=== PATIENT | male | born 1950 | race Caucasian/White ===

== ENCOUNTER 2017-01-03 12:00 | Inpatient (IN) | payer BC ==
[2016-12-29 13:28] LABS: HEMATOCRIT 49.2 % (40.0-51.0); HEMOGLOBIN 17.6 g/dL (13.6-17.8)
[2016-12-29 13:40] LABS: BUN (BLOOD UREA NITROGEN) 28 MG/DL (6-23); CALCIUM, SERUM 9.9 MG/DL (8.5-10.4); CHLORIDE, SERUM 101 MMOL/L (96-112); CO2 (CARBON DIOXIDE) 33 MMOL/L (24-34); CREATININE 1.51 MG/DL (0.70-1.30); GFR AFRICAN AMERICAN 56 ML/MIN (>=60); GFR NON AFRICAN AMERICAN 48 ML/MIN (>=60); GLUCOSE, SERUM 90 MG/DL (60-99); POTASSIUM, SERUM 4.8 MMOL/L (3.5-5.3); SODIUM, SERUM 137 MMOL/L (135-148)
--- NOTE | ~2017-01-03 | OP ---
Record Of Operation [facility] [address] [place]. [address] NAME: CHAMP FINK : 54 STATUS : ADM IN PAT#: [id number] AGE: 66 ADM/REG DATE : 01/03/17 MR#: [id number] REPORT SERV DATE: 01/04/17 DICTATED BY: MANJIT KELLY DATE: 01/04/17 REPORT STATUS : Draft TRANSCRIBED BY: MODL DATE: 01/04/17 DATE OF PROCEDURE: 01/03/2017 PREOPERATIVE DIAGNOSES: 1. Grade 3 spondylolisthesis, severe bilateral foraminal stenosis, L4-5. 2. Segmental kyphosis at L4-5. 3. Herniated nucleus pulposus far-lateral zone, right L5-S1. POSTOPERATIVE DIAGNOSIS: 1. Grade 3 spondylolisthesis, severe bilateral foraminal stenosis, L4-5. 2. Segmental kyphosis at L4-5. 3. Herniated nucleus pulposus far-lateral zone, right L5-S1. PROCEDURE: 1. Microscopic and navigation assisted surgery. 2. Left and right L4-5 hemilaminectomy, foraminotomy, and facetectomy. 3. Three-column pedicle osteotomy, L5. 4. Interbody cage insertion, posterolateral interbody fusion, L4-5. 5. Posterior percutaneous Voyager instrumentation at L4-5. 6. Left L5-S1 microdiskectomy far-lateral zone. NURSE PRACTITIONER: Steven Smith. ANESTHESIA: General. ESTIMATED BLOOD LOSS: 200 mL INDICATION FOR SURGERY: Indication for surgery and risks were explained. They are listed in last office note as well as the history and physical. See that for detail. DESCRIPTION OF PROCEDURE: Antibiotic prophylaxis was given. Neurophysiology monitoring were leads inserted. The patient was brought to the operative suite. General anesthetic including endotracheal intubation was administered. Palacios catheter was placed with sterile technique. The patient placed prone on a Leonel spine frame. Bony prominences were carefully padded. Thoracolumbar spine scrubbed with Hibiclens solution. DuraPrep was painted. Sterile drapes were applied. Please note that preoperatively I had reviewed the MRI again. By far his worse pathology is obviously at L4-5, but he did have MRI evidence of disk herniation on the left at L5-S1 in the far-lateral zone causing rather marked L5 nerve impingement. He did have L5 complaint and he did have more left leg than right leg pain. For this reason, I felt that I should also address this disk herniation. Also because of the complexity of surgery and the need to identify the correct level of surgery intraoperatively, as well as the desire to carry out the safest and most precise dissection, I felt that intraoperative navigation was mandatory. Record Of Operation [facility] [address] [facility] [place] [address] NAME: CHAMP FINK : 54 STATUS : ADM IN PAT#: [id number] AGE: 66 ADM/REG DATE : 01/03/17 MR#: [id number] REPORT SERV DATE: 01/04/17 DICTATED BY: MANJIT KELLY DATE: 01/04/17 REPORT STATUS : Draft TRANSCRIBED BY: JOSEFINA DATE: 01/04/17 A small stab wound was carried out over the right posterior superior iliac spine. A percutaneous pin with navigational frame attached was inserted into the PSIS. Intraoperative CT scan with O-arm obtained, CT information used to register the navigational system. With navigational assistance, I identified L4-5 and L5-S1. Initially, I identified the L5- S1 level. Just lateral to the facet joint, a 2 cm skin incision was carried out, that was extended another 2 cm later on to include the L4-5 level. I used the inferior portion of this incision and placed a blunt navigated probe through the fascia and muscle and docked over the far-lateral zone. The microscope was sterilely draped and used throughout the remainder of the procedure. Through microscopic dissection, I identified the exiting L5 nerve root just below the transverse process of L5. I gently protected the nerve root and retracted it slightly proximal and lateral, and removed a large disk herniation with pituitary rongeur. After the diskectomy in the far-lateral zone, the wound was irrigated, and the retractor was removed. I then moved to the right side and just lateral to the facet joint, 2.5 to 3 cm skin incision was carried out. A blunt navigated probe placed through the fascia and muscle and docked over the facet joint. Muscle dilator was inserted followed by placement of a tubular retractor attached to an arm mount on the table. The microscope was sterilely draped and continued to be used sterilely draped. I used a combination of a cutting bur, marcos bur, and 2 and 3 mm Kerrison rongeurs. I worked from [id number] and I removed the entire superior articular process of L5 down to the top of the pedicle, the inferior articular process of L4, the lamina of L4, and the pars interarticularis of L4, and all the local bone graft was morcellized. Because of the large spondylolisthesis, there was enormous disk herniation causing severe compression of the exiting L4 nerve root. The top portion of the pedicle of L5 had to be removed. I removed approximately a third of the pedicle of L5 superiorly in order to be able to enter below the nerve root, and worked underneath the nerve root to removed the large spondylotic bar, and a large disk herniation. I did remove this portion of the pedicle with this pedicle osteotomy using a cutting bur and marcos burs. I completely was able to decompress the exiting L4 nerve root, but it did require removal of this pedicle. Otherwise, I would have had high risk of the exiting L4 nerve injury. The wound was irrigated. I then moved to the left side, I used the top portion of the previous skin incision. I placed the tubular retractor over the facet joint. I carried out again the hemilaminectomy, foraminotomy, and facetectomy, but on the left side, the nerve was even worse in terms of impingement, and I had to remove approximately half of the end of the superior pedicle in order to safely remove the disk properly and without impingement. Because of this pedicle osteotomy, I decided that I would place hardware from L4 down to S1 rather than L5 as had been planned. After the transforaminal diskectomy, and the osteotomy completed, I then did an intradiscal trial. A capstone cage was filled with bone grafting. The cage was inserted through the transforaminal approach into the midline. A posterolateral interbody fusion was carried out with local bone graft, allograft, and a small dosage of bone protein. Record Of Operation [facility] [id number] [place]. [address] NAME: CHAMP FINK : 54 STATUS : ADM IN [facility]#: [id number] AGE: 66 ADM/REG DATE : 01/03/17 MR#: [id number] REPORT SERV DATE: 01/04/17 DICTATED BY: MANJIT KELLY DATE: 01/04/17 REPORT STATUS : Draft TRANSCRIBED BY: JOSEFINA DATE: 01/04/17 Finally, through the same incisions as described, I percutaneously placed a Voyager pedicle tap and screw inserter promotional item. I was able to tap the pedicles of L4 and L5 on the right, and L4 and S1 on the left. Polyaxial Voyager screws were placed with screw extenders. The appropriate size jada was then placed through the top portion, the screw was reduced into the tulip of the pedicle screw. The set screw was inserted and tightened with a torque wrench providing rigid stability. The screw extenders were removed. Intraoperative CT scan with O arm repeated showing excellent position of all implants. After final irrigation, only the fascial opening was closed with a single interrupted #1 Vicryl suture. The subcutaneous tissue closed with 2-0 Vicryl sutures, 2-0 vertical mattress nylon suture was used for skin closure. Sterile dressings were applied. The patient awakened, extubated, and taken to recovery room in satisfactory condition having tolerated the procedure well. Sponge, needle, and instrument counts were correct. No intraoperative complications noted. ENRIQUE/JOSEFINA Manjit Kelly D.O. / [id number] CC: Danielle Garvin M.D.
--- NOTE | ~2017-01-03 | PREOPHP ---
PreOp History and Physical [facility] [address] [place]. [address] NAME: CHAMP FINK : 54 STATUS : ADM IN PAT#: [id number] AGE: 66 ADM/REG DATE : 01/03/17 MR#: [id number] REPORT SERV DATE: 01/03/17 DICTATED BY: MANJIT KELLY DATE: 01/03/17 REPORT STATUS : Draft TRANSCRIBED BY: MODL DATE: 01/03/17 CHIEF COMPLAINT: Back pain, left much greater than right leg pain. HISTORY OF PRESENT ILLNESS: This 66-year-old male with rather severe back pain and left hip and leg pain, which has been really severe for the last four months, has been through time, medication, therapy, and conservative care. Plain x-rays revealed a grade 2 almost a grade 3 spondylolisthesis at L4-5 and there is a lytic defect at L4 through the pars interarticularis. The patient has gone on to develop severe disk degeneration and loss of disk height, but has developed rather severe pain, particularly in the left leg with numbness and tingling as well. The MRI shows severe bilateral foraminal stenosis with marked mass effect on the L4 nerve roots. The MRI from Dr. Henry' office shows a very large left-sided foraminal stenosis, mainly due to ligamentum flavum hypertrophy also usage. Because the patient has failed conservative care with the above findings, brought to surgery for a left and right L4-5 hemilaminectomy, foraminotomy, facetectomy, transforaminal diskectomy, interbody cage insertion, posterolateral interbody fusion with local bone graft and posterior percutaneous instrumentation. He also will need a left L5-S1 hemilaminotomy and foraminotomy. Prior to surgery, I have gone over the risks, benefits, alternatives, and expectations in great detail. Questions were answered in preop holding. The patient voiced understanding of the risks, willingness to accept those, and requested to proceed. PAST MEDICAL HISTORY: Included osteoarthritis, coronary artery disease. He has had IA. Also has hypercholesterolemia. PAST SURGICAL HISTORY: The patient has had tonsillectomy, adenoidectomy, colonoscopy, and appendectomy and a reconstructive hand surgery. CURRENT MEDICATIONS: Include allopurinol, AndroGel, aspirin, Cialis, DHEA, fish oil, glucosamine, Toprol, ramipril, and vitamin D. ALLERGIES: CODEINE AND PENICILLIN, MOSTLY WITH RASH. SOCIAL HISTORY: He is , three children. Former smoker. No longer smokes. FAMILY HISTORY: Noncontributory. REVIEW OF SYSTEMS: Otherwise negative. PHYSICAL EXAMINATION: VITAL SIGNS: He is 5 feet 6 inches and 178 pounds. His BMI is 27. GENERAL: He is alert, cooperative, and well oriented. LUNGS: Clear to auscultation. HEART: Rate is regular and rhythmic. ABDOMEN: Very obese but is soft with good bowel sounds. SPINE: The patient has easy palpable step-off in the midline. There is limited range of motion due to the pain. The patient's motor strengths are normal except the tibialis anterior and EHL are 4/5 bilaterally. Straight leg raising sign negative. Femoral nerve PreOp History and Physical [address] [address] NAME: CHAMP FINK : 54 STATUS : ADM IN [facility]#: [id number] AGE: 66 ADM/REG DATE : 01/03/17 MR#: [id number] REPORT SERV DATE: 01/03/17 DICTATED BY: MANJIT KELLY DATE: 01/03/17 REPORT STATUS : Draft TRANSCRIBED BY: MODL DATE: 01/03/17 stretch tests are negative. No sensory deficits found. Patellar reflex 2/4. Achilles is 1/4. No long tract signs are noted. Toes are downgoing. No ankle clonus found. Orthopedically, there is no pain with moving the hips, knees, or ankles. There are good pulses in all four extremities. No abnormal skin lesions are found. ASSESSMENT: As listed above. RECOMMENDATION: As listed in the chart. /MODL Manjit Kelly D.O. / [id number] CC: Danielle Garvin M.D.
--- NOTE | ~2017-01-03 | DS ---
Discharge Summary [facility] [address] [place]. [address] NAME: CHAMP FINK : 54 STATUS : DIS IN PAT#: [id number] AGE: 66 ADM/REG DATE : 01/03/17 MR#: [id number] REPORT SERV DATE: 01/18/17 DICTATED BY: MANJIT KELLY DATE: 01/17/17 REPORT STATUS : Draft TRANSCRIBED BY: MODGail DATE: 01/17/17 Data Collection from hospitalization DISCHARGE DIAGNOSES: 1. Grade 3 spondylolisthesis, severe bilateral foraminal stenosis, L4-5. 2. Segmental kyphosis at L4-5. 3. Herniated nucleus pulposus, far lateral zone, right L5-S1. 4. Hypertension. 5. Osteoarthritis. 6. Coronary artery disease. 7. History of myocardial infarction. 8. Hypercholesterolemia. 9. Former smoker. CONSULTATIONS: None. PROCEDURES PERFORMED: Microscopic and navigation-assisted surgery; left and right L4-5 hemilaminectomy, foraminotomy, and facetectomy; three-column pedicle osteotomy, L5; interbody cage insertion, posterolateral interbody fusion, L4-5; posterior percutaneous Voyager instrumentation at L4-5; left L5-S1 microdiskectomy far lateral zone, 01/03/2017. PATHOLOGY: Bone and soft tissue, L4-5 vertebra-nonspecific degenerative changes. MEDICATIONS: Aspirin 81 mg daily, vitamin D 5000 units daily, Neurontin 100 mg every 8 hours, Dilaudid 4 mg every four hours as needed, Robaxin 750 mg every 8 hours, Toprol-XL 50 mg every evening, DHEA one daily as instructed, Altace 10 mg twice a day, Crestor 20 mg every morning, AndroGel 10 g topically daily as instructed. CONDITION AT DISCHARGE: Stable. DISPOSITION: The patient was discharged home on a regular diet with activities as instructed. He would follow up with me two weeks following discharge. HOSPITAL COURSE: This is a 66-year-old man, who has severe back pain, left hip and leg pain, which had been really severe over the past four months prior to admission. He had been through time, medication therapy, and conservative care. Plain x-rays had revealed grade 2, almost grade 3 spondylolisthesis at L4-5 and lytic defect at L4 through the pars interarticularis. The patient had gone on to develop severe disk degeneration and loss of disk height, but had developed rather severe pain particularly in the left leg with numbness and tingling as well. MRI showed severe bilateral foraminal stenosis with marked mass effect on the L4 nerve roots. The MRI showed a very large, left-sided foraminal stenosis, mainly due to ligamentum flavum hypertrophy also usage. Treatment options were discussed and it was elected to proceed with surgical intervention. He was admitted to the hospital at this time for further evaluation and treatment. Upon admission, he was taken to the operating room, where he underwent the above-mentioned procedure. He tolerated this well and there were no complications. On postop day one, he was doing great. He had no leg pain. He had good pain control. He was evaluated by Discharge Summary [address] [place]. [address] NAME: CHAMP FINK : 54 STATUS : DIS IN PAT#: [id number] AGE: 66 ADM/REG DATE : 01/03/17 MR#: [id number] REPORT SERV DATE: 01/18/17 DICTATED BY: MANJIT KELLY DATE: 01/17/17 REPORT STATUS : Draft TRANSCRIBED BY: JOSEFINA DATE: 01/17/17 Physical Therapy. On postop day two, his pain continued to decrease. His dressings were clean, dry, and intact. Discharge planning was performed. On 01/06/2017, he continued to progress. He was alert and cooperative. Discharge instructions were given. Due to his improved and stable condition, he was discharged home with the above-stated instructions. Information collected by: Pinky Roth I submit the above information as my discharge summary. TG/JOSEFINA Manjit Kelly D.O. / [id number] CC: Danielle Garvin M.D.
[~2017-01-03 12:00] MED LIST: ALTACE10 MG PO; ANDROGEL5 TOP; ASA5GR PO; CRESTOR20 MG PO; DHE1 PO; FISH OIL1200 MG PO; GLUCCHONDR PO; TOPXL50 PO; VITAMIN D1000 UNI1 PO; VOLT75 PO; Z300 PO
[2017-01-03 20:49] LABS: BASOPHILS 0.2 %; BASOPHILS ABSOLUTE 0.02 10/3/uL (0.0-0.16); EOSINOPHILS 1.1 %; EOSINOPHILS ABSOLUTE 0.13 10/3/uL (0.0-0.53); HEMOGLOBIN 14.7 g/dL (13.6-17.8); IMMATURE GRANULOCYTES 0.3 %; IMMATURE GRANULOCYTES ABSOLUTE 0.04 10/3/uL (0.0-0.11); LYMPHOCYTES 28.7 %; LYMPHOCYTES ABSOLUTE 3.41 10/3/uL (0.67-4.30); MEAN CORPUS HGB CONC 35.3 g/dL (32.0-36.0); MEAN CORPUSCULAR HEMOGLOB 33.3 pg (26.0-34.0); MEAN CORPUSCULAR VOLUME 94.6 fL (80-100); MEAN PLATELET VOLUME 10.4 fL (9.2-13.0); MONOCYTES 10.6 %; MONOCYTES ABSOLUTE 1.26 10/3/uL (0.21-1.20); NEUTROPHILS 59.1 %; NEUTROPHILS ABSOLUTE 7.02 10/3/uL (2.02-8.40); PLATELET COUNT 135 10/3/uL (150-400); RED CELL COUNT 4.41 10/6/uL (4.7-6.1); WHITE BLOOD CELLS 11.9 10/3/uL (4.5-10.5)
[2017-01-03 20:50] LABS: HEMATOCRIT 41.7 % (40.0-51.0); MANUAL DIFF NO %
[2017-01-03 21:03] LABS: BUN (BLOOD UREA NITROGEN) 16 MG/DL (6-23); CALCIUM, SERUM 8.6 MG/DL (8.5-10.4); CHLORIDE, SERUM 104 MMOL/L (96-112); CO2 (CARBON DIOXIDE) 26 MMOL/L (24-34); GFR AFRICAN AMERICAN 82 ML/MIN (>=60); GFR NON AFRICAN AMERICAN 71 ML/MIN (>=60); GLUCOSE, SERUM 134 MG/DL (60-99); POTASSIUM, SERUM 4.1 MMOL/L (3.5-5.3); SODIUM, SERUM 137 MMOL/L (135-148)
[2017-01-04 05:19] LABS: BASOPHILS 0.3 %; BASOPHILS ABSOLUTE 0.02 10/3/uL (0.0-0.16); EOSINOPHILS 0.1 %; EOSINOPHILS ABSOLUTE 0.01 10/3/uL (0.0-0.53); HEMATOCRIT 42.2 % (40.0-51.0); HEMOGLOBIN 14.7 g/dL (13.6-17.8); IMMATURE GRANULOCYTES 0.4 %; IMMATURE GRANULOCYTES ABSOLUTE 0.03 10/3/uL (0.0-0.11); LYMPHOCYTES 13.4 %; LYMPHOCYTES ABSOLUTE 1.04 10/3/uL (0.67-4.30); MEAN CORPUS HGB CONC 34.8 g/dL (32.0-36.0); MEAN CORPUSCULAR VOLUME 94.8 fL (80-100); MEAN PLATELET VOLUME 10.8 fL (9.2-13.0); MONOCYTES ABSOLUTE 0.78 10/3/uL (0.21-1.20); NEUTROPHILS 75.8 %; PLATELET COUNT 124 10/3/uL (150-400); RBC DISTRIBUTION WIDTH 12.7 % (12.0-16.0); RED CELL COUNT 4.45 10/6/uL (4.7-6.1); WHITE BLOOD CELLS 7.8 10/3/uL (4.5-10.5)
[2017-01-04 05:23] LABS: MANUAL DIFF NO %
[2017-01-04 05:27] LABS: BUN (BLOOD UREA NITROGEN) 16 MG/DL (6-23); CALCIUM, SERUM 9.1 MG/DL (8.5-10.4); CHLORIDE, SERUM 100 MMOL/L (96-112); CO2 (CARBON DIOXIDE) 30 MMOL/L (24-34); CREATININE 1.13 MG/DL (0.70-1.30); GFR AFRICAN AMERICAN 79 ML/MIN (>=60); GFR NON AFRICAN AMERICAN 68 ML/MIN (>=60); GLUCOSE, SERUM 126 MG/DL (60-99); POTASSIUM, SERUM 4.2 MMOL/L (3.5-5.3); SODIUM, SERUM 136 MMOL/L (135-148)
[2017-01-06] MEDS ORDERED: ASAB PO (13:20)
[2017-01-06] MEDS ORDERED: METHOC750B PO (13:21)
[2017-01-06] MEDS ORDERED: NEUR100 PO (13:21)
[2017-01-06] MEDS ORDERED: DIL4TAB PO (13:21)
== END 2017-01-06 16:34 | disposition home or self-care (01) | DRG 460 ==
LOC: SDC/OF 12:00 → PACU 20:25 → 3SO 20:37
PROVIDERS: Orthopaedic Surgery Orthopaedic Surgery of the Spine
PROC: 4A1134G Monitoring of Peripheral Nervous Electrical Activity, Intraoperative, Percutaneous Approach (ICD-10-PCS; 2017-01-03)
PROC: 0SG00AJ Fusion of Lumbar Vertebral Joint with Interbody Fusion Device, Posterior Approach, Anterior Column, Open Approach (ICD-10-PCS; principal; 2017-01-03 13:45)
PROC: 0ST40ZZ Resection of Lumbosacral Disc, Open Approach (ICD-10-PCS; 2017-01-03 13:45)
DX: M51.37 Other intervertebral disc degeneration, lumbosacral region (principal)
CPT/HCPCS: 36415; 80048; 82962; 85014; 85018; 85025; 86850; 86900; 86901; 87641; 88304; 88311; 93005; 97110-GP; 97116-GP; 97161-GP; 97530-GP; A9270-GY; C1713; C1715; J1580; J1644; J2250; J2370; J2405; J2710; J3010; J3370